=== PATIENT | female | born 1960 | race African-American/Black ===

== ENCOUNTER 2024-05-31 05:51 | Observation (INO) ==
[2024-05-31] MEDS: IPRATROPIUM/ALBUTEROL SULFATE 3 ML AMPUL.NEB INH ONE (06:23)
[2024-05-31 06:35] LABS: Basophils%(Percent) Auto 0.2 (0.1-0.85); Eosinophils#(Absolute)Auto 0.1 (0.0-0.2); Eosinophils%(Percent) Auto 0.5 % (0.4-2.8); Granulocytes % - Auto 48.9 % (47.8-71.3); Granulocytes#(Absolute)- Auto 4.9 (2.3-6.0); Hematocrit 40.8 % (35.9-46.7); Monocytes #(Absolute)- Auto 1.4 (1.1-3.1); Monocytes %(Percent)- Auto 14.4 % (3.6-9.8); Platelet Count 296 K/uL (152-353)
[2024-05-31 06:39] LABS: Potassium 2.8 mmol/L (3.6-5.2)
--- NOTE | 2024-05-31 06:42 | Emergency Department Note ---
HPI - Chest Pain General Chief Complaint: SOB -Shortness of Breath Stated Complaint: sob Time Seen by Provider: 05/31/24 06:35 Source: patient Mode of arrival: ambulance Limitations: no limitations History of Present Illness HPI narrative: This is a 63 year old female patient that presents to the ER with c/o chest pressure and SOB since last night. Patient denies any abdominal pain, back pain, fever, chills, numbness, tingling, weakness or N/V/D. Patient states she has a hx of CHF MD complaint: Reports chest pain Onset (ago): hour(s) (24) Timing of current episode: Reports episodic Onset: Reports during rest Pain location: Reports left chest Pain radiation: Reports none Severity: mild Quality: Reports tightness Relieving factors: Reports nothing Exacerbating factors: Reports nothing Associated symptoms: Reports dyspnea Treatment prior to arrival: Reports none Risk Factors Coronary artery disease risk factors: Reports hyperlipidemia and hypertension Thoracic aortic dissection risk factors: Reports none Pulmonary embolism risk factors: Reports none Related Data Allergies Allergy/AdvReac Type Severity Reaction Status Date / Time aspirin Allergy Mild Verified 05/31/24 06:06 cefdinir (From Omnicef) Allergy Mild Verified 05/31/24 06:06 olanzapine (From Zyprexa) Allergy Mild Verified 05/31/24 06:06 tetracycline Allergy Mild Verified 05/31/24 06:06 Review of Systems Status of ROS 10 or more systems reviewed and unremark able except as noted in history and below Constitutional Denies: fever, chills, change in weight, fatigue, malaise, night sweats or change in sleep pattern Eyes Denies: change in vision, blurry vision, blind spots, light sensitivity or eye discomfort Ears, nose, mouth, and throat Denies: throat pain, neck pain, throat swelling, difficulty swallowing, hoarseness, mouth pain or swelling of lips/tongue Cardiovascular Reports: chest pain, shortness of breath with exertion and shortness of breath when lying down; Denies: palpitations, edema, swelling of feet/ankles, lightheadedness, leg pain with exertion or bluish discoloration of hands/feet Respiratory Reports: shortness of breath; Denies: cough, wheezing, stridor, pain on inspiration, change in phlegm color or coughing up blood Gastrointestinal Denies: abdominal pain, nausea, vomiting, coffee grounds in vomit, heartburn, diarrhea or constipation Genitourinary Denies: painful urination, urinary frequency, urinary urgency, urinary incontinence, blood in urine or difficulty voiding Musculoskeletal Reports: extremity swelling; Denies: back pain, neck pain, extremity pain, joint pain, limited range of motion, joint swelling or muscle cramps Integumentary/Breast Denies: rash, itching, redness, skin pain, skin tenderness, skin swelling, sores or new lesion Neurological Denies: headache, numbness in extremities, weakness in extremities, lack of coordination, dizziness or vertigo Psychiatric Denies: anxiety, mood swings, panic attacks, change in sleep pattern, hopelessness, loss of interest or irritability Endocrine Denies: excessive urination, excessive thirst, fatigue, cold intolerance, excessive sweating, flushing or heat intolerance Hematologic/Lymphatic Denies: easy bruising, easy bleeding or enlarged lymph nodes Allergic/Immunologic Denies: hives, throat swelling, tongue swelling, facial swelling, wheezing or itchy eyes Exam Constitutional: normal general appearance and no apparent distress Vital Signs - 24 hr 05/31/24 05:55 05/31/24 06:23 05/31/24 06:53 Temperature 98.6 F 98.6 F Pulse Rate 81 75 Respiratory Rate 22 19 Blood Pressure 167/80 184/91 Pulse Oximetry 99 99 99 Oxygen Delivery Me thod Nasal Cannula Nasal Cannula Oxygen Flow Rate 4 4 05/31/24 07:13 05/31/24 07:20 Temperature 98.9 F Pulse Rate Respiratory Rate Blood Pressure 190/83 Pulse Oximetry Oxygen Delivery Me thod Oxygen Flow Rate HENMT: normocephalic, head/scalp atraumatic, hearing grossly normal bilaterally, external ears normal, nasal mucous membranes normal, external nose normal, oral mucous membranes normal and oropharynx normal Eyes: PERRL, EOMs intact bilaterally and conjunctivae normal Neck/C-Spine: visual inspection normal and trachea midline Lymph: no lymphadenopathy noted Chest: inspection of chest normal Respiratory: breath sounds equal bilaterally, normal respiratory effort, clear to auscultation bilaterally, no wheezes, no rales, no retractions, no use of accessory muscles and chest percussion normal Cardiovascular: normal heart rate noted, regular rhythm noted, no gallop, no rub, no murmur, no JVD, no clicks, peripheral pulses 2+ throughout and no additional abnormal heart sounds Gastrointestinal: abdomen normal to inspection, abdomen soft to palpation, nontender to palpation, nontender to percussion, nondistended, normoactive bowel sounds, no hepatosplenomegaly, no masses, no pulsatile mass, no ascites and no hernia Genitourinary: no CVA tenderness Back/Pelvis: spine normal to inspection Extremities: abnormal to inspection (mild BLE swelling), normal to palpation, no tenderness, full ROM, no joint enlargement and no deformity 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 0733: A&Ox3, states she is feeling a little better, no s/s of acute distress noted Vital Signs Vital signs: Vital Signs Temperature 98.6 F 05/31/24 05:55 Pulse Rate 81 05/31/24 05:55 Respiratory Rate 22 05/31/24 05:55 Blood Pressure 167/80 05/31/24 05:55 Pulse Oximetry 99 05/31/24 05:55 Oxygen Delivery Method Nasal Cannula 05/31/24 05:55 Oxygen Flow Rate 4 05/31/24 05:55 Temperature 98.9 F 05/31/24 07:20 Pulse Rate 75 05/31/24 06:53 Respiratory Rate 19 05/31/24 06:53 Blood Pressure 190/83 05/31/24 07:13 Pulse Oximetry 99 05/31/24 06:53 Oxygen Delivery Method Nasal Cannula 05/31/24 06:53 Oxygen Flow Rate 4 05/31/24 06:53 MDM - Chest Pain Differential Diagnosis Differential diagnosis: Likely stable angina Medical Records Data Attestation: I reviewed the patient's medical records. Lab Data Attestation: I reviewed the patient's lab results. Labs: Lab Results 05/31/24 05/31/24 Range/Units 06:15 06:20 WBC 10.0 H (4.3-9.3) K/uL RBC 5.0 (4.00-5.50) M/uL Hgb 13.7 (12.5-15.8) gm/dL Hct 40.8 (35.9-46.7) % MCV 82.0 (81.0-93.7) fl MCH 27.5 L (27.6-32.2) pg MCHC 33.6 (33.1-35.3) g/dl RDW 14.6 H (11.4-14.2) % Plt Count 296 (152-353) K/uL MPV 6.9 (6.9-10.8) fl Gran % 48.9 (47.8-71.3) % Lymph % (Auto) 36.0 (20.0-43.0) % [place] % (Auto) 14.4 H (3.6-9.8) % Eos % (Auto) 0.5 (0.4-2.8) % Baso % (Auto) 0.2 (0.1-0.85) Lymph # (Auto) 3.6 H (1.1-3.1) [place] # (Auto) 1.4 (1.1-3.1) Eos # (Auto) 0.1 (0.0-0.2) Baso # (Auto) 0.0 (0.0-0.1) Absolute Gran (auto) 4.9 (2.3-6.0) D-Dimer 102 (100-600) ng/mL Sodium 120 L (136-145) mmol/L Potassium 2.8 L (3.6-5.2) mmol/L Chloride 84.0 L (98-107) mmol/L Carbon Dioxide 29 (21-32) mmol/L Anion Gap 7.0 (4-14) mEq/L BUN 2 L (7-18) mg/dL Creatinine 0.6 (0.6-1.3) mg/dL Estimated GFR 99.6 (>59.9) Glucose 113 H (70-110) mg/dL Calcium 9.2 (8.5-10.1) mg/dL Total Bilirubin 0.38 (0.0-1.0) mg/dL AST 12 L (15-37) U/L ALT 15 L (30-65) U/L Alkaline Phosphatase 93 (50-136) U/L Troponin I High Sens 4.30 (4.0-60.4) ng/L B-Natriuretic Peptide 26.6 (0-100) pg/mL Total Protein 7.7 (6.4-8.2) g/dL Albumin 3.2 L (3.4-5.0) g/dL Urine Color Pale yellow (STRAW/YELL.) Urine Appearance Clear (CLEAR) Ur Specific [place] 1.010 (1.001-1.035) Urine Protein Negative (NEGATIVE) Urine Glucose (UA) Normal (NORMAL) Urine Ketones Negative (NEGATIVE) Urine Occult Blood Negative (NEG - TRACE) Urine Nitrite Negative (NEGATIVE) Urine Bilirubin Negative (NEGATIVE) Urine Urobilinogen Normal (NORMAL) Ur Leukocyte Esterase Negative (NEGATIVE) Fluid pH 6.5 (5 - 9) Imaging Data Imaging ordered: Chest x-ray Attestation: I have reviewed the pertinent imaging results. ECG Data Attestation: I have reviewed the pertinent ECG results. Discharge Plan Discharge Patient Disposition: Admitted As Observation Condition: Stable Chief Complaint: SOB -Shortness of Breath Clinical Impression: Chest pain, Acute hypokalemia, Acute hyponatremia Print Language: Maltese Referrals: Heri Mckenzie [Primary Care Provider] - Time of Disposition: 07:34 [facility] Medical History (Updated 05/31/24 @ 06:14 by Destiny Black RN) CHF (congestive heart failure) Neuropathy Hypothyroid Osteoarthritis HTN (hypertension) Irregular heart beat Mitral valve prolapse Surgical History (Updated 05/31/24 @ 06:14 by Destiny Black RN) History of tonsillectomy H/O tubal ligation History of Social History Smoking status: never smoker
[2024-05-31 06:57] VITALS: RESP 19
[2024-05-31 07:03] LABS: Urine Appearance CLEAR (CLEAR); Urine Color PALE YELLOW (STRAW/YELL.)
[2024-05-31 07:04] LABS: PH BODY FLUID EXCP BLOOD 6.5 (5 - 9); Urine Blood NEGATIVE (NEG - TRACE); Urine Urobilinogen Normal (NORMAL)
[2024-05-31] MEDS ORDERED: 0.9 % SODIUM CHLORIDE 500 ML IV ONE (07:11)
[2024-05-31] MEDS ORDERED: POTASSIUM CHLORIDE IN WATER 20 MEQ/200 ML PIGGYBACK IV ONE (07:11)
[2024-05-31] MEDS: POTASSIUM CHLORIDE IN WATER 10 MEQ/100 ML PIGGYBACK IV ONE ×2 (07:12→08:36)
[2024-05-31] MEDS: NITROGLYCERIN 1 GM OINT...G. TD ONE (07:13)
[2024-05-31] MEDS: 0.9 % SODIUM CHLORIDE 500 ML IV ONE (07:13)
[2024-05-31 08:15] LABS: RBC Morphology Normal (Normal); Total Cells Counted 100
[2024-05-31] MEDS: 0.9 % SODIUM CHLORIDE 1000 ML 1,000 ML IV SCH (10:56)
[2024-05-31] MEDS ORDERED: bisacodyL 10 MG SUPP.RECT PR PRN (11:00)
[2024-05-31] MEDS ORDERED: MAGNESIUM, ALUMINUM HYDROXIDE 30 ML ORAL.SUSP PO PRN (11:00)
[2024-05-31] MEDS: ACETAMINOPHEN 500 MG TABLET PO PRN (12:53)
[2024-05-31 14:08] LABS: Potassium 3.4 mmol/L (3.6-5.2)
[2024-05-31] MEDS ORDERED: DIVALPROEX SODIUM 500 MG TABLET.DR PO SCH (15:45)
--- NOTE | 2024-05-31 16:18 | History & Physical Report ---
H&P: HPI History of Present Illness Chief complaint: chest pain,hponatremia,hypokalemia Narrative: This is a 63 year old female patient that presents to the ER with c/o chest pressure and SOB since last night. Patient denies any abdominal pain, back pain, fever, chills, numbness, tingling, weakness or N/V/D. Patient states she has a hx of CHF. talking or moving around makes the pain and shortness of breath worse. Patient states she was unable to sleep last night secondary to SOB and urinating constantly Review of Systems Status of ROS 10 or more systems reviewed and unremark able except as noted in history and below Constitutional Reports: fatigue, malaise and change in sleep pattern; Denies: fever, chills, change in weight or night sweats Eyes Denies: change in vision, blurry vision, blind spots, light sensitivity, eye discomfort or eye discharge Ears, nose, mouth, and throat Reports: tinnitus; Denies: throat pain, neck pain, throat swelling, difficulty swallowing, hoarseness, mouth pain, swelling of lips/tongue, ear pain, change in hearing or vertigo Cardiovascular Reports: chest pain, shortness of breath with exertion and shortness of breath when lying down; Denies: palpitations, edema, swelling of feet/ankles, lightheadedness, leg pain with exertion or bluish discoloration of hands/feet Respiratory Reports: shortness of breath and chest congestion; Denies: cough, wheezing, stridor, pain on inspiration, change in phlegm color or coughing up blood Gastrointestinal Denies: abdominal pain, nausea, vomiting, coffee grounds in vomit, heartburn, diarrhea, constipation or difficulty swallowing Genitourinary Reports: urinary frequency and urinary incontinence; Denies: painful urination, urinary urgency, blood in urine or difficulty voiding Musculoskeletal Reports: back pain, extremity pain and extremity swelling; Denies: neck pain, joint pain, limited range of motion, joint swelling, muscle cramps or muscle weakness Integumentary/Breast Denies: rash, itching, redness, skin pain, skin tenderness, skin swelling, sores or new lesion Neurological Denies: headache, numbness in extremities, weakness in extremities, lack of coordination, dizziness or vertigo Psychiatric Denies: anxiety, mood swings, panic attacks, change in sleep pattern, hopelessness, loss of interest or irritability Endocrine Denies: excessive urination, excessive thirst, fatigue, cold intolerance, excessive sweating, flushing or heat intolerance Hematologic/Lymphatic Denies: easy bruising, easy bleeding or enlarged lymph nodes Allergic/Immunologic Denies: hives, throat swelling, tongue swelling, facial swelling, wheezing or itchy eyes [facility] Medical History (Updated 05/31/24 @ 16:14 by Tali Wilkerson DO) Tremors of nervous system 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 COPD exacerbation CHF (congestive heart failure) Neuropathy Hypothyroid Osteoarthritis HTN (hypertension) Irregular heart beat Mitral valve prolapse Surgical History History of tonsillectomy H/O tubal ligation History of Social History Smoking status: never smoker Problems where you live: no known problems Highest level of school completed/degree received: College Feel stressed/tense/nervous/anxious/difficulty sleeping: to some extent Life stressors: other Life stressor details: health Gender Identity: female Meds Home Medications and Allergies Home Medications Medication Instructions Recorded Confirmed Type albuterol sulfate 90 mcg/actuation 2 puff inhalation Q4H PRN 05/31/24 05/31/24 History aerosol inhaler shortness of breath or wheezing amlodipine 10 mg tablet 10 mg PO BEDTIME 05/31/24 05/31/24 History atorvastatin 40 mg tablet 40 mg PO BEDTIME 05/31/24 05/31/24 History benztropine 1 mg tablet 1 mg PO BID 05/31/24 05/31/24 History divalproex 500 mg tablet,delayed See Rx Instructions PO .COMPLEX 05/31/24 0 05/31/24 History release fluticasone fur. 100 mcg-umeclid 1 inh inhalation BEDTIME 05/31/24 05/31/24 History 62.5 mcg-vilant 25 mcg inhalat.powder (Trelegy Ellipta) fluticasone propionate 50 1 spray intranasal BID 05/31/24 05/31/24 History mcg/actuation nasal spray,suspension hydrochlorothiazide 25 mg tablet 25 mg PO DAILY 05/31/24 05/31/24 History levothyroxine 112 mcg tablet 112 mcg PO QDAC 05/31/24 05/31/24 History losartan 100 mg tablet 100 mg PO DAILY 05/31/24 05/31/24 History metoprolol succinate 50 mg 50 mg PO DAILY 05/31/24 05/31/24 History tablet,extended release 24 hr montelukast 10 mg tablet 10 mg PO DAILY 05/31/24 05/31/24 History potassium chloride 20 mEq 20 meq PO DAILY 05/31/24 05/31/24 History tablet,extended release(part/cryst) Allergies Allergy/AdvReac Type Severity Reaction Status Date / Time aspirin Allergy Mild Verified 05/31/24 06:06 cefdinir (From Omnicef) Allergy Mild Verified 05/31/24 06:06 olanzapine (From Zyprexa) Allergy Mild Verified 05/31/24 06:06 tetracycline Allergy Mild Verified 05/31/24 06:06 Exam Constitutional: abnormal general appearance (disheveled), (chronically ill) and (appears older than stated age), distress noted (mild) and (respiratory), abnormal body habitus, limitations noted (physical limitations) and alert Vital Signs - 24 hr 05/31/24 05:55 05/31/24 06:23 05/31/24 06:53 Temperature 98.6 F 98.6 F Pulse Rate 81 75 Pulse Rate [Brachi al] Respiratory Rate 22 19 Blood Pressure 167/80 184/91 Blood Pressure [Ri t Arm] Pulse Oximetry 99 99 99 Oxygen Delivery Me thod Nasal Cannula Nasal Cannula Oxygen Flow Rate 4 4 05/31/24 07:13 05/31/24 07:20 05/31/24 08:00 Temperature 98.9 F Pulse Rate Pulse Rate [Brachi al] Respiratory Rate Blood Pressure 190/83 155/75 Blood Pressure [Ri t Arm] Pulse Oximetry Oxygen Delivery Me thod Oxygen Flow Rate 05/31/24 09:45 05/31/24 09:50 05/31/24 10:44 Temperature 99.1 F Pulse Rate 67 Pulse Rate [Brachi al] 67 Respiratory Rate 19 19 Blood Pressure 139/70 Blood Pressure [Ri t Arm] 150/85 Pulse Oximetry 97 96 Oxygen Delivery Me thod Room Air Nasal Cannula Oxygen Flow Rate 2 05/31/24 12:00 Temperature 98.3 F Pulse Rate Pulse Rate [Brachi al] Respiratory Rate 19 Blood Pressure Blood Pressure [Ri ght Arm] 115/67 Pulse Oximetry 100 Oxygen Delivery Me thod Room Air Oxygen Flow Rate HENMT: normocephalic, head/scalp atraumatic, hearing grossly abnormal, external ears normal, TMs abnormal, nasal mucous membranes normal, external nose normal, oral mucous membranes abnormal, oropharynx normal and dentition abnormal Eyes: PERRL, EOMs intact bilaterally, conjunctivae normal, no scleral icterus, papilledema noted, fundi normal bilaterally, alignment normal and periorbital findings normal Neck/C-Spine: trachea midline, cervical spine nontender, abnormal cervical ROM noted, supple, no meningeal signs, thyroid normal and no carotid bruits Lymph: no lymphadenopathy noted and no lymphedema noted Chest: inspection of chest normal and palpation of chest normal Respiratory: breath sounds unequal (deminished bases ), abnormal respiratory effort (labored), clear to auscultation bilaterally, wheezing noted (scattered wheezes), no rales, no retractions, no use of accessory muscles and chest percussion normal Cardiovascular: heart rate abnormal (bradycardic), regular rhythm noted, no gallop, no rub, no murmur, no JVD, no clicks, peripheral pulses 2+ throughout and no additional abnormal heart sounds Gastrointestinal: abdomen abnormal to inspection (obese), abdomen soft to palpation, nontender to palpation, nondistended, abnormal bowel sounds noted (hypoactive bowel sounds), hepatosplenomegaly noted, no masses, no pulsatile mass, no ascites and no hernia Genitourinary: no CVA tenderness and bladder normal to palpation Back/Pelvis: no thoracic spine tenderness, no lumbar spine tenderness, thoracic spine ROM abnormal, lumbar spine ROM abnormal and straight leg raise abnormal Extremities: abnormal to inspection (mild BLE swelling), normal to palpation, no tenderness, abnormal ROM noted, joint enlargement noted and no deformity 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, no movement abnormality noted, no focal motor deficit noted, sensory deficit noted, deep tendon reflexes 2+ bilaterally, gait abnormality noted, speech abnormality noted (trembling voice), coordination abnormality noted, no pronator drift noted, no fasciculations noted and GCS normal Psychiatry: mental status grossly normal, oriented x3, thought process normal, cooperative, affect abnormality noted (flat) and psychomotor abnormality noted Feel stressed/tense/nervous/anxious/difficulty sleeping: to some extent Life stressors: other Life stressor details: health Skin: skin color normal, rash noted (dry lips and erythema in breast and groin folds), no lesions, no ecchymosis noted, no wounds, no lacerations, skin turgor normal, no petechiae, no mottling, nails abnormality noted and alopecia noted Assessment and Plan Assessment and Plan (1) Hyponatremia: Code(s): E87.1 - Hypo-osmolality and hyponatremia (2) Angina at rest: Code(s): I20.89 - Other forms of angina pectoris (3) Hypokalemia: Code(s): E87.6 - Hypokalemia (4) CHF (congestive heart failure): Qualifiers: Heart failure type: systolic Heart failure chronicity: acute on chronic Qualified Code(s): I50.23 - Acute on chronic systolic (congestive) heart failure Code(s): I50.9 - Heart failure, unspecified (5) Hypothyroid: Qualifiers: Hypothyroidism type: acquired Qualified Code(s): E03.9 - Hypothyroidism, unspecified Code(s): E03.9 - Hypothyroidism, unspecified (6) Neuropathy: Code(s): G62.9 - Polyneuropathy, unspecified (7) HTN (hypertension): Qualifiers: Hypertension type: primary hypertension Qualified Code(s): I10 - Essential (primary) hypertension Code(s): I10 - Essential (primary) hypertension (8) Osteoarthritis: Qualifiers: Osteoarthritis location: multiple joints Osteoarthritis type: other secondary Qualified Code(s): 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 Code(s): M19.90 - Unspecified osteoarthritis, unspecified site (9) Bradycardia: Code(s): R00.1 - Bradycardia, unspecified (10) COPD exacerbation: Code(s): J44.1 - Chronic obstructive pulmonary disease with (acute) exacerbation (11) 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: Code(s): F32.89 - Other specified depressive episodes (12) Tremors of nervous system: Code(s): R25.1 - Tremor, unspecified Plan Normal saline 500 mL bolus and 125 an hour after that secondary to severe hyponatremia but will monitor patient for fluid overload Repeat chest x-ray PA lateral in the morning Replace hypokalemia potassium 6 continue to diuretics and diet per protocol Restart patient's levothyroxine Would not restart blood pressure medicines of losartan metoprolol until tomorrow secondary to having taken them this morning at home Monitor Valproate at this time and continue for depression not seizures daily aspirin 81 mg serial troponins and EKG's daily weights electrolytes replaced per protocols strict I/Os TSH and BNPeptide with am labs in the am nitro ointment per protocol duo nebs and pulmicort for COPD and dyspnea no solumedrol at this time hold HCTZ secondary to hyponatremia Results Labs Labs: CBC WBC 10.0 K/uL (4.3-9.3) H 05/31/24 06:20 RBC 5.0 M/uL (4.00-5.50) 05/31/24 06:20 Hgb 13.7 gm/dL (12.5-15.8) 05/31/24 06:20 Hct 40.8 % (35.9-46.7) 05/31/24 06:20 MCV 82.0 fl (81.0-93.7) 05/31/24 06:20 MCH 27.5 pg (27.6-32.2) L 05/31/24 06:20 MCHC 33.6 g/dl (33.1-35.3) 05/31/24 06:20 RDW 14.6 % (11.4-14.2) H 05/31/24 06:20 Plt Count 296 K/uL (152-353) 05/31/24 06:20 MPV 6.9 fl (6.9-10.8) 05/31/24 06:20 Gran % 48.9 % (47.8-71.3) 05/31/24 06:20 Lymph % (Auto) 36.0 % (20.0-43.0) 05/31/24 06:20 [place] % (Auto) 14.4 % (3.6-9.8) H 05/31/24 06:20 Eos % (Auto) 0.5 % (0.4-2.8) 05/31/24 06:20 Baso % (Auto) 0.2 (0.1-0.85) 05/31/24 06:20 Lymph # (Auto) 3.6 (1.1-3.1) H 05/31/24 06:20 [place] # (Auto) 1.4 (1.1-3.1) 05/31/24 06:20 Eos # (Auto) 0.1 (0.0-0.2) 05/31/24 06:20 Baso # (Auto) 0.0 (0.0-0.1) 05/31/24 06:20 Absolute Gran (auto) 4.9 (2.3-6.0) 05/31/24 06:20 BMP Sodium 124 mmol/L (136-145) L 05/31/24 12:50 Potassium 3.4 mmol/L (3.6-5.2) L 05/31/24 12:50 Chloride 88.0 mmol/L (98-107) L 05/31/24 12:50 Carbon Dioxide 31 mmol/L (21-32) 05/31/24 12:50 Anion Gap 5.0 mEq/L (4-14) 05/31/24 12:50 BUN 2 mg/dL (7-18) L 05/31/24 12:50 Creatinine 0.5 mg/dL (0.6-1.3) L 05/31/24 12:50 Estimated GFR 104.0 (>59.9) 05/31/24 12:50 Glucose 107 mg/dL (70-110) 05/31/24 12:50 Calcium 9.5 mg/dL (8.5-10.1) 05/31/24 12:50 Total Bilirubin 0.40 mg/dL (0.0-1.0) 05/31/24 12:50 AST 15 U/L (15-37) 05/31/24 12:50 ALT 15 U/L (30-65) L 05/31/24 12:50 Alkaline Phosphatase 90 U/L (50-136) 05/31/24 12:50 Total Protein 7.5 g/dL (6.4-8.2) 05/31/24 12:50 Albumin 3.0 g/dL (3.4-5.0) L 05/31/24 12:50 Cardiac Enzymes Troponin I High Sens 6.90 ng/L (4.0-60.4) 05/31/24 12:50 Liver Function Total Bilirubin 0.40 mg/dL (0.0-1.0) 05/31/24 12:50 AST 15 U/L (15-37) 05/31/24 12:50 ALT 15 U/L (30-65) L 05/31/24 12:50 Alkaline Phosphatase 90 U/L (50-136) 05/31/24 12:50 Total Protein 7.5 g/dL (6.4-8.2) 05/31/24 12:50 Albumin 3.0 g/dL (3.4-5.0) L 05/31/24 12:50 Urine Urine Color Pale yellow (STRAW/YELL.) 05/31/24 06:15 Urine Appearance Clear (CLEAR) 05/31/24 06:15 Ur Specific [place] 1.010 (1.001-1.035) 05/31/24 06:15 Urine Protein Negative (NEGATIVE) 05/31/24 06:15 Urine Glucose (UA) Normal (NORMAL) 05/31/24 06:15 Urine Ketones Negative (NEGATIVE) 05/31/24 06:15 Urine Occult Blood Negative (NEG - TRACE) 05/31/24 06:15 Urine Nitrite Negative (NEGATIVE) 05/31/24 06:15 Urine Bilirubin Negative (NEGATIVE) 05/31/24 06:15 Urine Urobilinogen Normal (NORMAL) 05/31/24 06:15 Ur Leukocyte Esterase Negative (NEGATIVE) 05/31/24 06:15 Pulse Oximetry Attestation: I have reviewed the pertinent pulse oximetry results. ECG Attestation: I have reviewed the pertinent ECG results. Imaging Imaging ordered: Chest x-ray Radiologist's impression: EXAM: Portable chest HISTORY: Shortness of breath COMPARISON: 09/14/2023 FINDINGS: Heart is enlarged. Jenniffer are normal. No congestive heart failure identified. Lungs are well inflated and free of acute infiltrates. Bony thorax is unremarkable with exception of left-sided glenohumeral joint degenerative joint disease and bilateral small cervical ribs. IMPRESSION: Mild cardiomegaly without congestive heart failure No infiltrates
[2024-05-31] MEDS: MONTELUKAST SODIUM 10 MG TABLET PO SCH (17:05)
[2024-05-31] MEDS: POTASSIUM CHLORIDE 20 MEQ TAB.ER.PRT PO ONE (17:05)
[2024-05-31] MEDS: METOPROLOL SUCCINATE 25 MG TAB.ER.24H PO SCH (17:05)
[2024-05-31 18:11] LABS: Potassium 3.4 mmol/L (3.6-5.2)
[2024-05-31] MEDS: ASPIRIN 81 MG TABLET.DR PO SCH (20:14)
[2024-05-31] MEDS: BUDESONIDE 0.5 MG/2 ML AMPUL.NEB INH SCH (20:58)
[2024-05-31 21:04] VITALS: PULSE 56; TEMP 98.1
[2024-05-31] MEDS: BENZTROPINE MESYLATE 1 MG TABLET PO SCH (21:21)
[2024-05-31] MEDS: ATORVASTATIN CALCIUM 40 MG TABLET PO SCH (21:21)
[2024-05-31] MEDS: FLUTICASONE 50 MCG NASAL 1 SPRAY.SUSP NAS SCH (21:21)
[2024-06-01 08:47] LABS: Basophils%(Percent) Auto 0.1 (0.1-0.85); Eosinophils%(Percent) Auto 0.5 % (0.4-2.8); Granulocytes % - Auto 46.3 % (47.8-71.3); Granulocytes#(Absolute)- Auto 3.9 (2.3-6.0); Hematocrit 39.6 % (35.9-46.7); Mean Corpuscular Volume 82.9 fl (81.0-93.7); Monocytes #(Absolute)- Auto 1.7 (1.1-3.1); Monocytes %(Percent)- Auto 20.1 % (3.6-9.8); Platelet Count 271 K/uL (152-353); White Blood Count 8.4 K/uL (4.3-9.3)
[2024-06-01 08:57] LABS: Potassium 3.6 mmol/L (3.6-5.2)
[2024-06-01] MEDS: LOSARTAN POTASSIUM 50 MG TABLET PO SCH (10:39)
[2024-06-01] MEDS: LEVOTHYROXINE SODIUM 112 MCG TABLET PO SCH (10:41)
[2024-06-01 10:43] VITALS: BP 176/68
--- NOTE | 2024-06-04 11:21 | Discharge Summary ---
DS: Providers Provider Date of admission: 05/31/24 08:16 Primary care physician: Heri Mckenzie Admitting clinician: Jazzmine Queen Attending physician on admission: Tali Wilkerson Attending physician on discharge: Tali Wilkerson Discharging clinician: Tali Wilkerson Anticipated date of discharge: 06/01/24 DS: Diagnosis Discharge Diagnosis (1) Hyponatremia: (2) Angina at rest: (3) Hypokalemia: (4) CHF (congestive heart failure): Qualifiers: Heart failure chronicity: acute on chronic Heart failure type: systolic Qualified Code(s): I50.23 - Acute on chronic systolic (congestive) heart failure (5) Hypothyroid: Qualifiers: Hypothyroidism type: acquired Qualified Code(s): E03.9 - Hypothyroidism, unspecified (6) Neuropathy: (7) HTN (hypertension): Qualifiers: Hypertension type: primary hypertension Qualified Code(s): I10 - Essential (primary) hypertension (8) Osteoarthritis: Qualifiers: Osteoarthritis location: multiple joints Osteoarthritis type: other secondary Qualified Code(s): 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 DS: Summary Hospital Course Hospital Course: This is a 63 year old female patient that presents to the ER with c/o chest pressure and SOB since last night. Patient denies any abdominal pain, back pain, fever, chills, numbness, tingling, weakness or N/V/D. Patient states she has a hx of CHF. Talking or moving around makes the pain and shortness of breath worse. Patient states she was unable to sleep last night secondary to SOB and urinating constantly. Admitted patient to med/surg for further observation and treatment. Day two of hospital stay, patient refused lab draw this a.m per nurse. Patient is ready to discharge home for self care. Post hospital follow up appointment with PCP is on Tuesday and a repeat BMP is recommended, repeat TSH in 4 weeks, and continue to drink electrolyte enriched drinks. Follow up appointment with Cardiology is already scheduled in the next few weeks. If symptoms return or worsen, patient is to return to ER. Status at Discharge Functional status at discharge: independent ambulation Overall status at discharge: patient is back to baseline Time Spent with Patient Time attestation: Total time spent providing and/or coordinating discharge services: Time spent: greater than 30 minutes Exam Exam: Patient in arriola's position upon entering room for exam. Constitutional: abnormal general appearance (disheveled), (chronically ill) and (appears older than stated age), no apparent distress, abnormal body habitus, limitations noted (physical limitations) and alert Vital Signs - 24 hr 05/31/24 17:57 05/31/24 20:58 05/31/24 20:59 Temperature 98.3 F Pulse Rate [Brachi al] 60 Respiratory Rate 19 Blood Pressure Blood Pressure [Ri ght Arm] 169/68 Pulse Oximetry 98 99 99 Oxygen Delivery Me thod Room Air Nasal Cannula Oxygen Flow Rate 2 05/31/24 21:02 06/01/24 08:08 06/01/24 10:39 Temperature 98.1 F Pulse Rate [Brachi al] 56 L Respiratory Rate 19 Blood Pressure 176/68 Blood Pressure [Ri ght Arm] 146/64 Pulse Oximetry 97 97 Oxygen Delivery Me thod Nasal Cannula Oxygen Flow Rate 2 HENMT: normocephalic, head/scalp atraumatic, hearing grossly abnormal, external ears normal, TMs abnormal, nasal mucous membranes normal, external nose normal, oral mucous membranes abnormal, oropharynx normal and dentition abnormal Eyes: PERRL, EOMs intact bilaterally, conjunctivae normal, no scleral icterus, papilledema noted, fundi normal bilaterally, alignment normal and periorbital findings normal Neck/C-Spine: visual inspection normal, trachea midline, cervical spine no ntender, abnormal cervical ROM noted, supple, no meningeal signs, thyroid normal and no carotid bruits Lymph: no lymphadenopathy noted and no lymphedema noted Chest: inspection of chest normal and palpation of chest normal Respiratory: breath sounds equal bilaterally, normal respiratory effort, clear to auscultation bilaterally, wheezing noted (scattered wheezes), no rales, no retractions, no use of accessory muscles and chest percussion normal Cardiovascular: heart rate abnormal (bradycardic), regular rhythm noted, no gallop, no rub, no murmur, no JVD, no clicks, peripheral pulses 2+ throughout and no additional abnormal heart sounds Gastrointestinal: abdomen abnormal to inspection (obese), abdomen soft to palpation, nontender to palpation, nontender to percussion, nondistended, normoactive bowel sounds, hepatosplenomegaly noted, no masses, no pulsatile mass, no ascites and no hernia Genitourinary: no CVA tenderness and bladder normal to palpation Back/Pelvis: spine normal to inspection, no thoracic spine tenderness, no lumbar spine tenderness, thoracic spine ROM abnormal, lumbar spine ROM abnormal and straight leg raise abnormal Extremities: normal to inspection, normal to palpation, no tenderness, abnormal ROM noted, joint enlargement noted and no deformity 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, no movement abnormality noted, no focal motor deficit noted, sensory deficit noted, deep tendon reflexes 2+ bilaterally, gait abnormality noted, speech abnormality noted (trembling voice), coordination abnormality noted, no pronator drift noted, no fasciculations noted and GCS normal Psychiatry: mental status grossly normal, oriented x3, thought process normal, cooperative, affect normal and psychomotor abnormality noted Skin: skin color normal, rash noted (dry lips and erythema in breast and groin folds), no lesions, no ecchymosis noted, no wounds, no lacerations, skin turgor normal, no petechiae, no mottling, nails abnormality noted and alopecia noted DS: Data Data Completed and Pending Labs on day of discharge: Labs from last 24 hours 06/01/24 05/31/24 05/31/24 08:40 21:50 18:00 WBC 8.4 RBC 4.8 Hgb 13.0 Hct 39.6 MCV 82.9 MCH 27.2 L MCHC 32.9 L RDW 14.9 H Plt Count 271 MPV 6.7 L Gran % 46.3 L Lymph % (Auto) 33.0 [place] % (Auto) 20.1 H Eos % (Auto) 0.5 Baso % (Auto) 0.1 Lymph # (Auto) 2.8 [place] # (Auto) 1.7 Eos # (Auto) 0.0 Baso # (Auto) 0.0 Absolute Gran (auto) 3.9 Sodium 133 L 126 L Potassium 3.6 3.4 L Chloride 95.0 L 90.0 L Carbon Dioxide 32 34 H Anion Gap 6.0 2.0 L BUN 2 L 1 L Creatinine 0.6 0.5 L Estimated GFR 99.6 104.0 Glucose 102 100 Calcium 8.8 9.2 Phosphorus 3.5 Magnesium 1.8 Total Bilirubin 0.35 AST 20 ALT 15 L Alkaline Phosphatase 86 Troponin I High Sens 6.90 9.00 7.30 B-Natriuretic Peptide 32.5 Total Protein 6.8 Albumin 2.8 L TSH 7.27 H COVID-19 (ROSY) Influenza Type A Ag Influenza Type B Ag 05/31/24 16:00 WBC RBC Hgb Hct MCV MCH MCHC RDW Plt Count MPV Gran % Lymph % (Auto) [place] % (Auto) Eos % (Auto) Baso % (Auto) Lymph # (Auto) [place] # (Auto) Eos # (Auto) Baso # (Auto) Absolute Gran (auto) Sodium Potassium Chloride Carbon Dioxide Anion Gap BUN Creatinine Estimated GFR Glucose Calcium Phosphorus Magnesium Total Bilirubin AST ALT Alkaline Phosphatase Troponin I High Sens B-Natriuretic Peptide Total Protein Albumin TSH COVID-19 (ROSY) Not detected Influenza Type A Ag Negative Influenza Type B Ag Negative Imaging Chest x-ray: Radiologist's impression: Portable chest Date of Service: 05/31/24 HISTORY: Shortness of breath COMPARISON: 09/14/2023 FINDINGS: Heart is enlarged. Jenniffer are normal. No congestive heart failure identified. Lungs are well inflated and free of acute infiltrates. Bony thorax is unremarkable with exception of left-sided glenohumeral joint degenerative joint disease and bilateral small cervical ribs. IMPRESSION: Mild cardiomegaly without congestive heart failure No infiltrates Discharge Plan Discharge Disposition: Home, Self-Care Condition: Improved Discharge Medications: New levothyroxine 137 mcg capsule 137 mcg PO DAILY Qty: 30 0RF sodium chloride 1,000 mg tablet,soluble 1,000 mg PO Q12H Qty: 60 0RF hydralazine 25 mg tablet 25 mg PO Q12H PRN (Reason: elevated BP) Qty: 60 0RF metoprolol succinate 25 mg tablet extended release 24 hr 25 mg PO DAILY Qty: 30 0RF Continued albuterol sulfate 90 mcg/actuation HFA aerosol inhaler 2 puff INHALATION Q4H PRN (Reason: shortness of breath or wheezing) amlodipine 10 mg tablet 10 mg PO BEDTIME atorvastatin 40 mg tablet 40 mg PO BEDTIME benztropine 1 mg tablet 1 mg PO BID divalproex 500 mg tablet,delayed release (DR/EC) See Rx Instructions PO .COMPLEX Rx Instructions: TAKE 500 MG EVERY MORNING AND 1000MG AT BEDTIME orally; Trelegy Ellipta 100-62.5-25 mcg blister with device 1 inh INHALATION BEDTIME fluticasone propionate 50 mcg/actuation spray,suspension 1 spray INTRANASAL BID losartan 100 mg tablet 100 mg PO DAILY montelukast 10 mg tablet 10 mg PO DAILY potassium chloride 20 mEq tablet,ER particles/crystals 20 meq PO DAILY Patient Comments: WAS TOLD TO STOP THIS MEDICATION BY THE PHYSICIAN A FEW WEEKS AGO. HER POTASSIUM IS LOW AND THE PHYSICIANS IN THE HOSPITAL TOLD HER TO CONTINUE THIS MEDICATION Discontinued hydrochlorothiazide 25 mg tablet 25 mg PO DAILY levothyroxine 112 mcg tablet 112 mcg PO QDAC metoprolol succinate 50 mg tablet extended release 24 hr 50 mg PO DAILY Discharge Orders: Discharge Order (Routine); Ordered 06/01/24 Ordered By: Tali Wilkerson Activity: as per physical therapy Diet: diabetic diet and low fat, low cholesterol Interventions: Discharge Assessment Last Done: 06/01/24 12:30 MED/SURG & ICU Observation Charge Sheet Last Done: 06/01/24 12:43 Plan of Treatment: repeat BMP on Tuesday with her PCP follow up zero calorie electrolyte drinks and limit free water please repeat TSH in 4 weeks cardiology follow up in the next few weeks Patient Instructions: Chest Pain (DC), Hyponatremia (DC) Activity Restrictions/Additional Instructions: APPT ON 06/19/24 AT 1000 AM.[facility] WILL CALL YOU ON TUESDAY FOR APPT TIME FOR PCP. Forms: Portal/Health Info Access Inst Follow-Ups: Heri Mckenzie [Primary Care Provider] - Mahsa Mclean NP [Referring] - 06/13/24 10:20 am Discharge Date/Time: 06/01/24 16:15
== END 2024-06-01 16:15 | disposition home or self-care (01) ==
LOC: MS 05:51 → ED 05:51 → MS 09:45
PROVIDERS: ADMIT Family Medicine; ATTEND Family Medicine
DX: J44.1 Chronic obstructive pulmonary disease with (acute) exacerbation; F32.89 Other specified depressive episodes; R00.1 Bradycardia, unspecified; G62.9 Polyneuropathy, unspecified; R25.1 Tremor, unspecified; I11.0 Hypertensive heart disease with heart failure; R06.02 Shortness of breath; E03.8 Other specified hypothyroidism; E87.6 Hypokalemia; E87.1 Hypo-osmolality and hyponatremia; I20.89 Other forms of angina pectoris; M15.3 Secondary multiple arthritis; R07.89 Other chest pain; I50.23 Acute on chronic systolic (congestive) heart failure